=== PATIENT | male | born 1965 | race Caucasian/White ===

== ENCOUNTER 2016-12-23 09:39 | Emergency (ER) | payer OTHER ==
[2016-12-23] MEDS ORDERED: DIPH,PERTUS(ACELL)TETVAC-LF 0.5 ML VIAL IM ONE (09:43)
[2016-12-23] MEDS ORDERED: ceFAZolin 1,000 MG in DEXTROSE/WATER 1 50ML.BAG IVPB STA (09:44)
--- NOTE | 2016-12-23 10:04 | XR ---
Right hand HISTORY: Trauma third digit, pain No comparisons 3 views of the right hand There is soft tissue defect at the third digit compatible with laceration. There is a fracture does n ot show displacement third digit. Flexion deformity is present, correlate for possible tendon injury. No dislocation. IMPRESSION: Fracture and Posttraumatic changes of the third digit of the right hand
[2016-12-23 10:11] VITALS: TEMP 97.3
--- NOTE | 2016-12-23 10:23 | ED ---
General Adult HPI <Oskar Daniel - Last Filed: 12/23/16 10:57> - General Source: patient, EMS, RN notes reviewed Mode of arrival: EMS Limitations: no limitations <Pedro Pablo Stevenson - Last Filed: 12/23/16 11:30> - General Chief complaint: Extremity Injury, Upper Stated complaint: Finger Laceration Time Seen by Provider: 12/23/16 09:43 - History of Present Illness Initial comments: Patient 51-year-old male who presents to emergency room by EMS, the chief complaint of injury to the right middle finger just prior to arrival. Patient does admit that he was at work when he pushed against a piece of metal and it kicked back causing a laceration to the volar aspect of the right middle finger. He states unsure of his tetanus status. He denies any other complaints or injuries. Admits to pain locally. Patient denies any recent fever , chills, shortness of breath, chest pain, back pain, abdominal pain, nausea or vomiting, numbness or tingling, dysuria or hematuria, constipation or diarrhea, headaches or visual changes, or any other complaints. (Pedro Pablo Stevenson) - Related Data Previous Rx's Medication Instructions Recorded Cephalexin [Keflex] 500 mg PO Q12HR 10 Days 12/23/16 Hydrocodone/Acetaminophen [Ranger 1 each PO Q6HR PRN #10 tab 12/23/16 5-325] Allergies Allergy/AdvReac Type Severity Reaction Status Date / Time No Known Allergies Allergy Verified 12/23/16 10:02 Review of Systems ROS Other: All systems not noted in ROS Statement are negative. <Oskar Daniel - Last Filed: 12/23/16 10:57> ROS Other: All systems not noted in ROS Statement are negative. <Pedro Pablo Stevenson - Last Filed: 12/23/16 11:30> ROS Statement: Those systems with pertinent positive or pertinent negative responses have been documented in the HPI. Past Medical History Past Medical History: Hypertension History of Any Multi-Drug Resistant Organisms: None Reported Past Surgical History: Hernia Repair Past Psychological History: No Psychological Hx Reported Smoking Status: Current every day smoker Past Alcohol Use History: Occasional Past Drug Use History: None Reported <Pedro Pablo Stevenson - Last Filed: 12/23/16 11:30> General Exam <Oskar Daniel - Last Filed: 12/23/16 10:57> Limitations: no limitations <Pedro Pablo Stevenson - Last Filed: 12/23/16 11:30> - General Exam Comments Initial Comments: General: The patient is awake and alert, in no distress, and does not appear acutely ill. Neck: The neck is supple, there is no tenderness or JVD. Cardiovascular: There is a regular rate and rhythm. No murmur, rub or gallop is appreciated. Respiratory: Lungs are clear to auscultation, respirations are non-labored, breath sounds are equal. No wheezes, stridor, rales, or rhonchi. Musculoskeletal: Patient does have laceration to the volar aspect of the right middle finger. Sensations are intact. He is able to fully flex. He does have decreased extension at the DIP aspect. Cap refill less than 2 seconds. Pulses equal bilaterally 2+. Neurological: A&O x 3. CN II-XII intact, There are no obvious motor or sensory deficits. Coordination appears grossly intact. Speech is normal. Skin: Vision does have a V shaped laceration to the volar aspect of the right middle finger stretching just proximal of the PIP down to the DIP aspect. Mild venous oozing. Psychiatric: Normal mood and affect. (Pedro Pablo Stevenson) Course <Oskar Daniel - Last Filed: 12/23/16 10:57> <Pedro Pablo Stevenson - Last Filed: 12/23/16 11:30> Vital Signs 12/23/16 10:02 Temperature 97.3 F L Pulse Rate 64 Respiratory 18 Rate Blood Pressure 146/88 O2 Sat by Pulse 98 Oximetry - Reevaluation(s) Reevaluation #1: 12/23/16 10:57 I did personally do a [id number] evaluation of this patient and did discuss the findings with Dr. Horner. Patient has an evulsion injury to the volar aspect of the right middle finger the tendon does appear to be intact as far as the flexor tendon the patient is unable however to extend his distal phalanx. There is no open wounds over the dorsum of the finger. The avulsion injuries considered. Patient will be evaluated with washing out of the open wound and oversewing. Patient be placed in a splint and follow-up with Dr. Good for evaluation of his hand injury. (Oskar Daniel) Procedures <Oskar Daniel - Last Filed: 12/23/16 10:57> <Pedro Pablo Stevenson - Last Filed: 12/23/16 11:30> - Procedures Initial comment: Proximal May 5 centimeter V-shaped laceration to the volar aspect of the right middle finger. Area was heavily irrigated with saline under pressure. Anesthetized locally at the head of the metacarpal with 1% lidocaine without epi. Wound edges approximated with 5-0 nylon. A total of 15 sutures placed. ( Pedro Pablo Stevenson) Medical Decision Making <Oskar Daniel - Last Filed: 12/23/16 10:57> <Pedro Pablo Stevenson - Last Filed: 12/23/16 11:30> - Medical Decision Making Patient does appear to have tendon disruption of the distal aspect of the right middle finger. No lacerated tendons on exam as injury is to the volar side. Case discussed and seen by attending physician Dr. Daniel discussed it with orthopedic sales receptionist who states patient can be sewn up and follow-up in the office in the next 2 days. Patient tetanus updated. (Pedro Pablo Stevenson) Disposition <Oskar Daniel - Last Filed: 12/23/16 10:57> Time of Disposition: 11:29 <Pedro Pablo Stevenson - Last Filed: 12/23/16 11:30> Clinical Impression: Finger laceration, Tendon injury Disposition: HOME SELF-CARE Condition: Good Instructions: Laceration (ED) Additional Instructions: Please follow-up with orthopedics in the next 2 days as discussed. Please use antibiotic and pain medication as prescribed. Please return to emergency room if symptoms increase or worsen or for any other concerns. Prescriptions: Cephalexin [Keflex] 500 mg PO Q12HR 10 Days Hydrocodone/Acetaminophen [Ranger 5-325] 1 each PO Q6HR PRN #10 tab PRN Reason: Pain Referrals: Selwyn Conklin MD [Primary Care Provider] - 1-2 days Jone Good DO [Doctor of Osteopathic Medicine] - 1-2 days
[2016-12-23] MEDS ORDERED: TOPICAL SKIN ADHESIVE 1 EACH AMP TOPICAL ONE (11:48)
[2016-12-23 12:16] VITALS: BP 145/98; PULSE 74; RESP 16
== END 2016-12-23 12:18 | disposition home or self-care (01) ==
LOC: EC 09:39
DX: S61.212A Laceration without foreign body of right middle finger without damage to nail, initial encounter (principal); F17.200 Nicotine dependence, unspecified, uncomplicated; Z23 Encounter for immunization; W45.8XXA Other foreign body or object entering through skin, initial encounter; Y92.69 Other specified industrial and construction area as the place of occurrence of the external cause; Y93.89 Activity, other specified; Y99.0 Civilian activity done for income or pay
CPT/HCPCS: 73130; 90715; 99283; 96365; 12002; 90471; J0690

== ENCOUNTER 2018-06-24 07:07 | Day surgery (SDC) | payer OTHER ==
[2018-06-20 09:47] VITALS: BMI 31.6
[~2018-06-24 07:07] MED LIST: LACTATED RINGERS 1,000 ML IV SCH; LIDOCAINE 1% 20 ML VIAL (10MG/ML) FOR IV START INTRADERMA PRN
[2018-06-24 07:23] VITALS: TEMP 98
[2018-06-24] MEDS ORDERED: PROPOFOL 10 MG/ML 20 ML VIAL IV ONE (07:50)
--- NOTE | 2018-06-24 07:58 | P.GSHP ---
History of Present Illness H&P Date: 06/24/18 Chief Complaint: Screening colonoscopy This is a 52-year-old male who presents today for screening colonoscopy. He denies a any significant GI complaints. Past Medical History Past Medical History: Hyperlipidemia, Hypertension History of Any Multi-Drug Resistant Organisms: None Reported Past Surgical History: Hernia Repair, Orthopedic Surgery Additional Past Surgical History / Comment(s): Achilles tendon repair Past Anesthesia/Blood Transfusion Reactions: No Reported Reaction Smoking Status: Current every day smoker - Past Family History Mother Family Medical History: No Reported History Medications and Allergies Home Medications Medication Instructions Recorded Confirmed Type Fenofibrate 50 mg PO DAILY 06/20/18 06/24/18 History Lisinopril-Hctz 10-12.5 mg 1 tab PO DAILY 06/20/18 06/24/18 History [Zestoretic 10-12.5] Allergies Allergy/AdvReac Type Severity Reaction Status Date / Time No Known Allergies Allergy Verified 06/20/18 09:42 Surgical - Exam Vital Signs Temp Pulse Resp BP Pulse Ox 98.0 F 67 14 120/74 97 06/24/18 07:21 06/24/18 07:21 06/24/18 07:21 06/24/18 07:21 06/24/18 07:21 - General well developed, no distress - Eyes PERRL - ENT normal pinna - Neck no masses - Respiratory normal expansion - Cardiovascular Rhythm: regular - Abdomen Abdomen: soft, non tender Assessment and Plan Assessment: We'll perform initial screening colonoscopy.
--- NOTE | 2018-06-24 08:13 | P.OP ---
Date of Procedure: 06/24/18 Preoperative Diagnosis: Screening colonoscopy Postoperative Diagnosis: Rectal polyp Diverticulosis Procedure(s) Performed: Colonoscopy Anesthesia: MAC Surgeon: Al Warren Pathology: other (Rectal polyp) Condition: stable Disposition: PACU Description of Procedure: The patient's placed on the endoscopy table in the lateral position. He received IV sedation. Digital rectal exam was performed which revealed no abnormalities. Flexible colonoscope was then placed patient anus and passed throughout the entire colon. The ileocecal valve was visualized. The cecum, ascending and transverse colon appeared normal. The scope was then brought back into the descending colon and there was a few scattered diverticula. Scope was then brought back the sigmoid colon and a few scattered diverticuli were seen. The scope was then brought back the rectum and a polyp was seen and this was removed with the cold forcep. Scope was withdrawn for patient.
[2018-06-24 08:23] VITALS: RESP 16
[2018-06-24 08:41] VITALS: BP 132/78; PULSE 58
== END 2018-06-24 09:05 | disposition home or self-care (01) ==
LOC: ORWHC2ENDO 07:07
PROVIDERS: ATTEND Surgery
DX: Z12.11 Encounter for screening for malignant neoplasm of colon (principal); K62.1 Rectal polyp; K57.30 Diverticulosis of large intestine without perforation or abscess without bleeding; E78.5 Hyperlipidemia, unspecified; I10 Essential (primary) hypertension; Z79.899 Other long term (current) drug therapy; F17.210 Nicotine dependence, cigarettes, uncomplicated
CPT/HCPCS: 88305; 45380; J2704

== ENCOUNTER 2020-01-18 14:18 | Emergency (ER) | payer BC, OTHER ==
[2020-01-18 14:27] VITALS: RESP 18; TEMP 98
--- NOTE | 2020-01-18 14:50 | ED ---
General Adult HPI - General Source: patient Mode of arrival: ambulatory Limitations: no limitations <Aylin Reid - Last Filed: 01/18/20 16:13> <Anais Madrid - Last Filed: 01/21/20 11:48> - General Chief complaint: Recheck/Abnormal Lab/Rx Stated complaint: Hypertensive Time Seen by Provider: 01/18/20 14:29 - History of Present Illness Initial comments: Patient is a 54-year-old male, with history hypertension, presenting to the emergency Department with complaints of elevated blood pressure and feeling of anxiety happened approximately one hour ago. Patient states he did not take his blood pressure medication first thing this morning like he typically does, he had a large breakfast and then started having feelings of intense anxiety, heart racing, palpitations. He denies having any chest pain or pain anywhere. He states he then did take his medication. He checked his blood pressure at home and it was in the 160s and she got worried so he called EMS. By the time EMS arrived, patient states he felt normal again. EMS did do an EKG and checked his blood pressure which was in the 170s to 180s. Patient then decided to come into the ER to be seen. He is having no complaints at this time. He states it's been at least 9-10 years with his last stress test. He continues to report no chest pain, no shortness of breath. He denies any nausea, vomiting, abdominal pain. He states he simply got worried of this episode happened earlier. He reports no recent changes in medication. He has no further complaints at this time. Upon arrival to the ER, BP is 149/86, rest of vitals are stable. (Aylin Redi) - Related Data Home Medications Medication Instructions Recorded Confirmed Fenofibrate 50 mg PO DAILY 06/20/18 06/24/18 Lisinopril-Hctz 10-12.5 mg 1 tab PO DAILY 06/20/18 06/24/18 [Zestoretic 10-12.5] Allergies Allergy/AdvReac Type Severity Reaction Status Date / Time No Known Allergies Allergy Verified 06/20/18 09:42 Review of Systems ROS Other: All systems not noted in ROS Statement are negative. <Aylin Reid - Last Filed: 01/18/20 16:13> ROS Other: All systems not noted in ROS Statement are negative. <Anais Madrid - Last Filed: 01/21/20 11:48> ROS Statement: Those systems with pertinent positive or pertinent negative responses have been documented in the HPI. Past Medical History Past Medical History: Hyperlipidemia, Hypertension History of Any Multi-Drug Resistant Organisms: None Reported Past Surgical History: Hernia Repair, Orthopedic Surgery Additional Past Surgical History / Comment(s): Achilles tendon repair Past Anesthesia/Blood Transfusion Reactions: No Reported Reaction Past Psychological History: No Psychological Hx Reported Smoking Status: Current every day smoker Past Alcohol Use History: None Reported Past Drug Use History: None Reported - Past Family History Mother Family Medical History: No Reported History <Aylin Reid - Last Filed: 01/18/20 16:13> General Exam Limitations: no limitations <Aylin Reid - Last Filed: 01/18/20 16:13> - General Exam Comments Initial Comments: GENERAL: Well-appearing, well-nourished and in no acute distress. HEAD: Atraumatic, normocephalic. EYES: Pupils equal round and reactive to light, extraocular movements intact, sclera anicteric, conjunctiva are normal. ENT: TMs normal, nares patent, oropharynx clear without exudates. Moist mucous membranes. NECK: Normal range of motion, supple without lymphadenopathy or JVD. LUNGS: Breath sounds clear to auscultation bilaterally and equal. No wheezes rales or rhonchi. HEART: Regular rate and rhythm without murmurs, rubs or gallops. ABDOMEN: Soft, nontender, normoactive bowel sounds. No guarding, no rebound. No masses appreciated. : Deferred EXTREMITIES: Normal range of motion, no pitting or edema. No clubbing or cyanosis. NEUROLOGICAL: Cranial nerves II through XII grossly intact. Normal speech, normal gait. PSYCH: Normal mood, normal affect. SKIN: Warm, Dry, normal turgor, no rashes or lesions noted. (Aylin Reid) Course Vital Signs 01/18/20 01/18/20 01/18/20 14:23 15:27 16:29 Temperature 98.0 F Pulse Rate 65 75 70 Respiratory 18 16 18 Rate Blood Pressure 149/86 149/96 129/83 O2 Sat by Pulse 98 98 98 Oximetry EKG Findings - EKG Comments: EKG Findings:: EKG reads normal sinus rhythm with sinus arrhythmia, no acute changes, no signs of acute ischemia. Ventricular rate 70, OK interval 148, QTC 436. <Aylin Reid - Last Filed: 01/18/20 16:13> Medical Decision Making - Lab Data Result diagrams: 01/18/20 15:05 01/18/20 15:05 <Aylin Reid - Last Filed: 01/18/20 16:13> - Lab Data Result diagrams: 01/18/20 15:05 01/18/20 15:05 <Anais Madrid - Last Filed: 01/21/20 11:48> - Medical Decision Making Patient is a 54-year-old male presenting after an episode of heart racing, anxiety, "not feeling right." He was evaluated by EMS and decided to be seen in the ER. Upon arrival, his blood pressure and rest of vitals are normal. He is experiencing no symptoms at this time. His exam is unremarkable. EKG shows no acute changes. Lab work is unremarkable, troponin is normal. Chest x-ray shows no acute findings. Patient has remained asymptomatic in the ER. His blood pressure has been completely normal. I discussed with patient that his workup today is normal and he can follow up with his PCP. Patient is in agreement with this plan of care. Return parameters were discussed with the patient and he verbalized understanding. Case discussed with Dr. Madrid. (Aylin Reid) I was available for consultation in the emergency department. The history and physical exam were done by the midlevel provider. I was consulted for this patients care. I reviewed the case with the midlevel provider and based on their presentation of the patient, I agree with the assessment, medical decision making and plan of care as documented. Chart was dictated using [employer] dictation software. Attempts were made to correct any dictation errors however some typographical errors may persist. Patient was seen during a national state of emergency due to the Covid-19 pandemic. (Anais Madrid) - Lab Data Lab Results 01/18/20 01/18/20 01/18/20 Range/Units 15:05 15:05 15:05 WBC 8.7 (3.8-10.6) k/uL RBC 4.93 (4.30-5.90) m/uL Hgb 15.2 (13.0-17.5) gm/dL Hct 45.7 (39.0-53.0) % MCV 92.7 (80.0-100.0) fL MCH 30.8 (25.0-35.0) pg MCHC 33.2 (31.0-37.0) g/dL RDW 12.7 (11.5-15.5) % Plt Count 367 (150-450) k/uL Neutrophils % 54 % Lymphocytes % 33 % Monocytes % 5 % Eosinophils % 5 % Basophils % 1 % Neutrophils # 4.7 (1.3-7.7) k/uL Lymphocytes # 2.9 (1.0-4.8) k/uL Monocytes # 0.5 (0-1.0) k/uL Eosinophils # 0.4 (0-0.7) k/uL Basophils # 0.1 (0-0.2) k/uL Sodium 138 (137-145) mmol/L Potassium 4.6 (3.5-5.1) mmol/L Chloride 108 H (98-107) mmol/L Carbon Dioxide 23 (22-30) mmol/L Anion Gap 7 mmol/L BUN 19 (9-20) mg/dL Creatinine 1.11 (0.66-1.25) mg/dL Est GFR (CKD-EPI)AfAm 88 (>60 ml/min/1.73 sqM) Est GFR (CKD-EPI)NonAf 76 (>60 ml/min/1.73 sqM) Glucose 122 H (74-99) mg/dL Calcium 9.4 (8.4-10.2) mg/dL Total Bilirubin 0.6 (0.2-1.3) mg/dL AST 40 (17-59) U/L ALT 41 (4-49) U/L Alkaline Phosphatase 67 (38-126) U/L Troponin I <0.012 (0.000-0.034) ng/mL Total Protein 7.8 (6.3-8.2) g/dL Albumin 4.5 (3.5-5.0) g/dL Disposition Is patient prescribed a controlled substance at d/c from ED?: No <Aylin Reid - Last Filed: 01/18/20 16:13> <Anais Madrid - Last Filed: 01/21/20 11:48> Clinical Impression: Hypertension, Anxiety Disposition: HOME SELF-CARE Condition: Stable Instructions (If sedation given, give patient instructions): Hypertension (ED) Additional Instructions: Please return to the Emergency Department if symptoms worsen or any other concerns. Follow-up with PCP. Referrals: Selwyn Conklin MD [Primary Care Provider] - 1-2 days
[2020-01-18 15:23] LABS: Basophils # (A) 0.1 k/uL (0-0.2); Basophils % (A) 1 %; Eosinophils # (A) 0.4 k/uL (0-0.7); Eosinophils % (A) 5 %; HCT 45.7 % (39.0-53.0); HGB 15.2 gm/dL (13.0-17.5); Lymphocytes # (A) 2.9 k/uL (1.0-4.8); Lymphocytes % (A) 33 %; MCH 30.8 pg (25.0-35.0); MCHC 33.2 g/dL (31.0-37.0); MCV 92.7 fL (80.0-100.0); Mean Platelet Volume 7.3; Monocytes # (A) 0.5 k/uL (0-1.0); Monocytes % (A) 5 %; Neutrophils # (A) 4.7 k/uL (1.3-7.7); Neutrophils % (A) 54 %; Platelet Count 367 k/uL (150-450); RBC 4.93 m/uL (4.30-5.90); RDW 12.7 % (11.5-15.5); WBC 8.7 k/uL (3.8-10.6)
--- NOTE | 2020-01-18 15:23 | XR ---
EXAMINATION TYPE: XR chest 2V DATE OF EXAM: 01/18/2020 COMPARISON: NONE HISTORY: Palpitations TECHNIQUE: FINDINGS: Heart and mediastinum are normal. Lungs are clear. Diaphragm is normal. Bony thorax appears normal. There are chest leads. IMPRESSION: Normal chest. Normal heart.
[2020-01-18 15:28] LABS: Albumin 4.5 g/dL (3.5-5.0); Calcium 9.4 mg/dL (8.4-10.2); Potassium 4.6 mmol/L (3.5-5.1); Total Bilirubin 0.6 mg/dL (0.2-1.3); Total Protein 7.8 g/dL (6.3-8.2)
[2020-01-18 16:29] VITALS: BP 129/83; PULSE 70
== END 2020-01-18 16:30 | disposition home or self-care (01) ==
LOC: EC 14:18
DX: I10 Essential (primary) hypertension (principal); F41.9 Anxiety disorder, unspecified; E78.5 Hyperlipidemia, unspecified; F17.200 Nicotine dependence, unspecified, uncomplicated; Z79.899 Other long term (current) drug therapy
CPT/HCPCS: 36415; 71046; 80053; 84484; 85025; 93005; 99284

== ENCOUNTER 2022-02-16 11:36 | Emergency (ER) | payer BC, OTHER ==
[2022-02-16 11:56] VITALS: RESP 16; TEMP 98
[2022-02-16 12:13] LABS: Basophils # (A) 0.1 k/uL (0-0.2); Basophils % (A) 1 %; Eosinophils # (A) 0.2 k/uL (0-0.7); Eosinophils % (A) 3 %; HGB 13.3 gm/dL (13.0-17.5); Lymphocytes # (A) 2.1 k/uL (1.0-4.8); Lymphocytes % (A) 29 %; MCHC 33.2 g/dL (31.0-37.0); MCV 93.2 fL (80.0-100.0); Mean Platelet Volume 7.4; Monocytes # (A) 0.3 k/uL (0-1.0); Monocytes % (A) 4 %; Neutrophils # (A) 4.6 k/uL (1.3-7.7); Neutrophils % (A) 62 %; Platelet Count 312 k/uL (150-450); RBC 4.29 m/uL (4.30-5.90); RDW 12.7 % (11.5-15.5); WBC 7.3 k/uL (3.8-10.6)
[2022-02-16] MEDS ORDERED: ASPIRIN 81 MG PO STA (12:16)
[2022-02-16 12:26] LABS: ALT 22 U/L (4-49); AST 25 U/L (17-59); African American GFR (CKD) >90 (>60 ml/min/1.73 sqM); Alkaline Phosphatase 65 U/L (38-126); Anion Gap 7 mmol/L; Blood Urea Nitrogen 15 mg/dL (9-20); Calcium 8.7 mg/dL (8.4-10.2); Carbon Dioxide 23 mmol/L (22-30); Chloride 109 mmol/L (98-107); Glucose 113 mg/dL (74-99); Magnesium 1.6 mg/dL (1.6-2.3); Non-African American GFR(CKD) 89 (>60 ml/min/1.73 sqM); Potassium 3.5 mmol/L (3.5-5.1); Sodium 139 mmol/L (137-145); Total Bilirubin 0.7 mg/dL (0.2-1.3); Total Protein 6.7 g/dL (6.3-8.2)
[2022-02-16 12:37] LABS: Partial Thromboplastin Time 25.4 sec (22.0-30.0); Prothrombin Time 10.9 sec (9.0-12.0)
--- NOTE | 2022-02-16 13:47 | XR ---
EXAMINATION TYPE: XR chest 2V DATE OF EXAM: 02/16/2022 COMPARISON: X-ray dated 01/18/2020 HISTORY: Chest pain TECHNIQUE: Frontal and lateral views of the chest are obtained. FINDINGS: Grossly unremarkable lungs. No sizable pleural effusion or definite pneumothorax. No cardiomegaly. No gross aggressive bone lesion. IMPRESSION: Grossly unremarkable chest x-ray.
[2022-02-16 13:56] VITALS: PULSE 63
[2022-02-16 13:58] VITALS: BP 149/95
--- NOTE | 2022-02-16 14:09 | ED ---
General Adult HPI - General Chief complaint: Neuro Symptoms/Deficit Stated complaint: Hypertensive Time Seen by Provider: 02/16/22 11:53 Source: patient, EMS, RN notes reviewed Mode of arrival: EMS Limitations: no limitations - History of Present Illness Initial comments: This a 56-year-old male presents emergency Department with chief complaint of chest pressure, reflux, hypertension. Patient states he was at work states he drank some Coke. Patient states that he started not feeling well states he sometimes has is that she really gets pressure, reflux. He states that he still wasn't feeling better after burping continuously went home. He went home check his blood pressure was noted be high. He checked it several times after with increasing symptoms, facial numbness and tingling feeling very anxious. Patient states he still didn't feel well and which he contacted his significant other, started to drive towards the hospital while contacting EMS. Patient was found be hypertensive by EMS but his numbness and tingling have resolved he still has mild indigestion, chest pressure. - Related Data Home Medications Medication Instructions Recorded Confirmed Fenofibrate Nanocrystallized 145 mg PO DAILY 02/16/22 02/16/22 [Fenofibrate] Lisinopril-Hctz 20-25 mg 1 tab PO DAILY 02/16/22 02/16/22 [Zestoretic 20-25] Allergies Allergy/AdvReac Type Severity Reaction Status Date / Time No Known Allergies Allergy Verified 02/16/22 12:23 Review of Systems ROS Statement: Those systems with pertinent positive or pertinent negative responses have been documented in the HPI. ROS Other: All systems not noted in ROS Statement are negative. Past Medical History Past Medical History: Hyperlipidemia, Hypertension History of Any Multi-Drug Resistant Organisms: None Reported Past Surgical History: Hernia Repair, Orthopedic Surgery Additional Past Surgical History / Comment(s): Achilles tendon repair Past Anesthesia/Blood Transfusion Reactions: No Reported Reaction Past Psychological History: No Psychological Hx Reported Smoking Status: Current every day smoker Past Alcohol Use History: None Reported Past Drug Use History: Marijuana - Past Family History Mother Family Medical History: No Reported History General Exam Limitations: no limitations General appearance: alert, in no apparent distress Head exam: Present: atraumatic, normocephalic, normal inspection Eye exam: Present: normal appearance, PERRL, EOMI. Absent: scleral icterus, conjunctival injection, periorbital swelling ENT exam: Present: normal exam, normal oropharynx, mucous membranes moist Neck exam: Present: normal inspection, full ROM. Absent: tenderness, men ingismus, lymphadenopathy Respiratory exam: Present: normal lung sounds bilaterally. Absent: respiratory distress, wheezes, rales, rhonchi, stridor Cardiovascular Exam: Present: regular rate, normal rhythm, normal heart sounds. Absent: systolic murmur, diastolic murmur, rubs, gallop, clicks GI/Abdominal exam: Present: soft, normal bowel sounds. Absent: distended, tenderness, guarding, rebound, rigid Back exam: Absent: CVA tenderness (R), CVA tenderness (L) Neurological exam: Present: alert, oriented X3 Skin exam: Present: warm, dry, intact, normal color. Absent: rash Course Vital Signs 02/16/22 02/16/22 02/16/22 11:41 13:55 13:57 Temperature 98.0 F Pulse Rate 53 L 63 Respiratory 16 16 16 Rate Blood Pressure 185/97 148/102 149/95 O2 Sat by Pulse 98 97 Oximetry Medical Decision Making - Medical Decision Making 56-year-old presented for chest epigastric pressure. Patient did have mild hypertension, does have panic attack, anxiety issues. Patient symptoms are resolved workup is negative including EKG, troponin and chest x-ray. 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 - Lab Data Result diagrams: 02/16/22 12:04 02/16/22 12:04 Lab Results 02/16/22 02/16/22 02/16/22 Range/Units 12:04 12:04 12:04 WBC 7.3 (3.8-10.6) k/uL RBC 4.29 L (4.30-5.90) m/uL Hgb 13.3 (13.0-17.5) gm/dL Hct 40.0 (39.0-53.0) % MCV 93.2 (80.0-100.0) fL MCH 31.0 (25.0-35.0) pg MCHC 33.2 (31.0-37.0) g/dL RDW 12.7 (11.5-15.5) % Plt Count 312 (150-450) k/uL MPV 7.4 Neutrophils % 62 % Lymphocytes % 29 % Monocytes % 4 % Eosinophils % 3 % Basophils % 1 % Neutrophils # 4.6 (1.3-7.7) k/uL Lymphocytes # 2.1 (1.0-4.8) k/uL Monocytes # 0.3 (0-1.0) k/uL Eosinophils # 0.2 (0-0.7) k/uL Basophils # 0.1 (0-0.2) k/uL PT 10.9 (9.0-12.0) sec INR 1.0 (<1.2) APTT 25.4 (22.0-30.0) sec D-Dimer <0.17 (<0.60) mg/L FEU Sodium 139 (137-145) mmol/L Potassium 3.5 (3.5-5.1) mmol/L Chloride 109 H (98-107) mmol/L Carbon Dioxide 23 (22-30) mmol/L Anion Gap 7 mmol/L BUN 15 (9-20) mg/dL Creatinine 0.97 (0.66-1.25) mg/dL Est GFR (CKD-EPI)AfAm >90 (>60 ml/min/1.73 sqM) Est GFR (CKD-EPI)NonAf 89 (>60 ml/min/1.73 sqM) Glucose 113 H (74-99) mg/dL Calcium 8.7 (8.4-10.2) mg/dL Magnesium 1.6 (1.6-2.3) mg/dL Total Bilirubin 0.7 (0.2-1.3) mg/dL AST 25 (17-59) U/L ALT 22 (4-49) U/L Alkaline Phosphatase 65 (38-126) U/L Troponin I (0.000-0.034) ng/mL Total Protein 6.7 (6.3-8.2) g/dL Albumin 4.0 (3.5-5.0) g/dL 02/16/22 Range/Units 12:04 WBC (3.8-10.6) k/uL RBC (4.30-5.90) m/uL Hgb (13.0-17.5) gm/dL Hct (39.0-53.0) % MCV (80.0-100.0) fL MCH (25.0-35.0) pg MCHC (31.0-37.0) g/dL RDW (11.5-15.5) % Plt Count (150-450) k/uL MPV Neutrophils % % Lymphocytes % % Monocytes % % Eosinophils % % Basophils % % Neutrophils # (1.3-7.7) k/uL Lymphocytes # (1.0-4.8) k/uL Monocytes # (0-1.0) k/uL Eosinophils # (0-0.7) k/uL Basophils # (0-0.2) k/uL PT (9.0-12.0) sec INR (<1.2) APTT (22.0-30.0) sec D-Dimer (<0.60) mg/L FEU Sodium (137-145) mmol/L Potassium (3.5-5.1) mmol/L Chloride (98-107) mmol/L Carbon Dioxide (22-30) mmol/L Anion Gap mmol/L BUN (9-20) mg/dL Creatinine (0.66-1.25) mg/dL Est GFR (CKD-EPI)AfAm (>60 ml/min/1.73 sqM) Est GFR (CKD-EPI)NonAf (>60 ml/min/1.73 sqM) Glucose (74-99) mg/dL Calcium (8.4-10.2) mg/dL Magnesium (1.6-2.3) mg/dL Total Bilirubin (0.2-1.3) mg/dL AST (17-59) U/L ALT (4-49) U/L Alkaline Phosphatase (38-126) U/L Troponin I <0.012 (0.000-0.034) ng/mL Total Protein (6.3-8.2) g/dL Albumin (3.5-5.0) g/dL Disposition Clinical Impression: Atypical chest pain, Hypertension Disposition: HOME SELF-CARE Condition: Stable Instructions (If sedation given, give patient instructions): Chest Pain (ED) Additional Instructions: Please return to the Emergency Department if symptoms worsen or any other concerns. Is patient prescribed a controlled substance at d/c from ED?: No Referrals: [facility],Clinic [Primary Care Provider] - 1-2 days Time of Disposition: 14:27
== END 2022-02-16 14:51 | disposition home or self-care (01) ==
LOC: EC 11:36
DX: R07.89 Other chest pain (principal); I10 Essential (primary) hypertension; F17.200 Nicotine dependence, unspecified, uncomplicated; Z79.899 Other long term (current) drug therapy
CPT/HCPCS: 36415; 71046; 80053; 83735; 84484; 85025; 85379; 85610; 85730; 99285

== ENCOUNTER → 2022-07-18 | Outpatient (CLI) | payer OTHER ==
--- NOTE | 2022-07-18 12:01 | XR ---
EXAMINATION TYPE: XR wrist complete RT DATE OF EXAM: 07/18/2022 CLINICAL HISTORY: Injury with pain TECHNIQUE: Frontal, lateral and oblique images of the right wrist are obtained. 4 view scaphoid vie w is performed. COMPARISON: Right hand x-ray 2016 FINDINGS: There is no acute fracture/dislocation evident in the right wrist. The joint spaces in th e right wrist appear within normal limits. The overlying soft tissue appears unremarkable. IMPRESSION: There is no acute fracture or dislocation in the right wrist.
== END | disposition home or self-care (01) ==
LOC: RADXRMAIN 11:34
PROVIDERS: ATTEND Emergency Medicine
DX: S66.911A Strain of unspecified muscle, fascia and tendon at wrist and hand level, right hand, initial encounter (principal)

== ENCOUNTER 2023-01-18 01:24 | Emergency (ER) | payer OTHER, BC ==
[2023-01-18 01:29] VITALS: TEMP 97.9
--- NOTE | 2023-01-18 02:44 | XR ---
EXAM: XR Chest, 2 Views CLINICAL HISTORY: XR Reason: congestion TECHNIQUE: Frontal and lateral views of the chest. COMPARISON: February 16, 2022 FINDINGS: Lungs: Unremarkable. No consolidation. Pleural space: Unremarkable. No pneumothorax. Heart: Unremarkable. No cardiomegaly. Mediastinum: Unremarkable. Bones/joints: Unremarkable. IMPRESSION: No acute cardiopulmonary process is identified.
[2023-01-18] MEDS ORDERED: IPRATROPIUM-ALBUTEROL 3 ML NEB INHALATION STA (03:49)
--- NOTE | 2023-01-18 04:37 | ED ---
General Adult HPI - General Chief complaint: Shortness of Breath Stated complaint: SOB Time Seen by Provider: 01/18/23 03:00 Source: patient, family Mode of arrival: wheelchair Limitations: no limitations - History of Present Illness Initial comments: This is a 57-year-old male with a past medical history including asthma presents emergency department for increasing shortness of breath and congestion. The patient was noted that he has had asthma in the past and did have a similar episode to this 2 weeks ago that took a few weeks to improve. The patient stated that he feels that he has some minor asthma that does get worse with changes in weather. The patient stated he had an old albuterol inhaler that was over 9 years old and was not working. The patient denied recent sick contacts and denied any fevers or chills. The patient did state that he had a minor cough as well. - Related Data Home Medications Medication Instructions Recorded Confirmed Fenofibrate Nanocrystallized 145 mg PO DAILY 02/16/22 02/16/22 [Fenofibrate] Lisinopril-Hctz 20-25 mg 1 tab PO DAILY 02/16/22 02/16/22 [Zestoretic 20-25] Previous Rx's Medication Instructions Recorded Albuterol Inhaler [Ventolin Hfa 1 - 2 puff INHALATION Q6H PRN #1 01/18/23 Inhaler] kit methylPREDNISolone [Medrol Dose 0 mg PO DIRECTED #1 packet 01/18/23 Pack] Allergies Allergy/AdvReac Type Severity Reaction Status Date / Time No Known Allergies Allergy Verified 01/18/23 01:28 Review of Systems ROS Statement: Those systems with pertinent positive or pertinent negative responses have been documented in the HPI. ROS Other: All systems not noted in ROS Statement are negative. Past Medical History Past Medical History: Hyperlipidemia, Hypertension History of Any Multi-Drug Resistant Organisms: None Reported Past Surgical History: Hernia Repair, Orthopedic Surgery Additional Past Surgical History / Comment(s): Achilles tendon repair Past Anesthesia/Blood Transfusion Reactions: No Reported Reaction Past Psychological History: No Psychological Hx Reported Smoking Status: Current every day smoker Past Alcohol Use History: None Reported Past Drug Use History: Marijuana - Past Family History Mother Family Medical History: No Reported History General Exam Limitations: no limitations General appearance: alert, in no apparent distress Head exam: Present: atraumatic, normocephalic, normal inspection Eye exam: Present: normal appearance, PERRL Pupils: Present: normal accommodation ENT exam: Present: normal exam, normal oropharynx, mucous membranes moist Neck exam: Present: normal inspection, full ROM Respiratory exam: Present: normal lung sounds bilaterally Cardiovascular Exam: Present: regular rate, normal rhythm, normal heart sounds GI/Abdominal exam: Present: soft, normal bowel sounds Extremities exam: Present: normal inspection, full ROM Back exam: Present: normal inspection, full ROM Neurological exam: Present: alert, oriented X3, CN II-XII intact Psychiatric exam: Present: normal affect, normal mood Skin exam: Present: warm, dry Course Vital Signs 01/18/23 01/18/23 01/18/23 01:26 03:12 04:40 Temperature 97.9 F Pulse Rate 86 70 60 Respiratory 18 22 Rate Blood Pressure 183/112 153/102 O2 Sat by Pulse 98 97 Oximetry 01/18/23 01/18/23 04:48 04:59 Temperature Pulse Rate 65 74 Respiratory 16 Rate Blood Pressure 142/88 O2 Sat by Pulse 99 Oximetry EKG Findings - EKG Comments: EKG Findings:: An EKG was obtained and was interpreted by myself showing a rate of 86, MN interval 150, QRS duration of 96 and QTC of 454. This EKG showed a normal sinus rhythm with no ST segment elevation or depression noted. Medical Decision Making - Medical Decision Making Was pt. sent in by a medical professional or institution (RAMAN Loredo, HIGHWALL DRILL OPERATOR, urgent care, hospital, or fpc...) When possible be specific @ -No Did you speak to anyone other than the patient for history (EMS, parent, family, police, friend...)? What history was obtained from this source @ -No Did you review nursing and triage notes (agree or disagree)? Why? @ -I reviewed and agree with nursing and triage notes Were old charts reviewed (outside hosp., previous admission, EMS record, old EKG, old radiological studies, urgent care reports/EKG's, fpc records)? Report findings @ -No old charts were reviewed Differential Diagnosis (chest pain, altered mental status, abdominal pain women, abdominal pain men, vaginal bleeding, weakness, fever, dyspnea, syncope, headache, dizziness, GI bleed, back pain, seizure, CVA, palpatations, mental health)? @ -Asthma exacerbation, pneumonia, pneumothorax EKG interpreted by me (3pts min.). @ -As above X-rays interpreted by me (1pt min.). @ -Chest x-ray was obtained and was interpreted by myself showing no acute process. CT interpreted by me (1pt min.). @ -None done U/S interpreted by me (1pt. min.). @ -None done What testing was considered but not performed or refused? (CT, X-rays, U/S, labs)? Why? @ -None What meds were considered but not given or refused? Why? @ -None Did you discuss the management of the patient with other professionals (professionals i.e. Dr., PA, HIGHWALL DRILL OPERATOR, lab, RT, psych nurse, social services assistant, director advertising, teacher, global chief creative officer, director case management)? Give summary @ -No Was smoking cessation discussed for >3mins.? @ -Yes Was critical care preformed (if so, how long)? @ -No Were there social determinants of health that impacted care today? How? (Homelessness, low income, unemployed, alcoholism, drug addiction, transportation, low edu. Level, literacy, decrease access to med. care, halfway, rehab)? @ -No Was there de-escalation of care discussed even if they declined (Discuss DNR or withdrawal of care, Hospice)? DNR status @ -No What co-morbidities impacted this encounter? (DM, HTN, Smoking, COPD, CAD, Cancer, CVA, ARF, Chemo, Hep., AIDS, mental health diagnosis, sleep apnea, morbid obesity)? @ -None Was patient admitted / discharged? Hospital course, mention meds given and route, prescriptions, significant lab abnormalities, going to OR and other pertinent info. @ -The patient was seen and evaluated emergency department. Physical exam, the patient was resting in bed without any acute distress. Vital signs admission were stable. Chest x-ray was obtained in triage and was negative. The patient denied of any wheezing on auscultation and likely had an upper respiratory infection. The patient was given a single breathing treatment for comfort and on reevaluation stated that his symptoms had improved. The patient was given a prescription for a Medrol Dosepak as well as a albuterol inhaler refill to be taken at home. The patient was advised to follow-up with his primary care physician for further workup and evaluation is report back to the emergency department if his symptoms became acutely worse. The patient was agreeable to this and all discretions were answered. The patient was discharged home in stable condition. Undiagnosed new problem with uncertain prognosis? @ -No Drug Therapy requiring intensive monitoring for toxicity (Heparin, Nitro, Insulin, Cardizem)? @ -No Were any procedures done? @ -No Diagnosis/symptom? @ -Upper respiratory infection Acute, or Chronic, or Acute on Chronic? @ -Acute Uncomplicated (without systemic symptoms) or Complicated (systemic symptoms)? @ -Uncomplicated Side effects of treatment? @ -No Exacerbation, Progression, or Severe Exacerbation? @ -No Poses a threat to life or bodily function? How? (Chest pain, USA, NC, pneumonia, PE, COPD, DKA, ARF, appy, cholecystitis, CVA, Diverticulitis, Homicidal, Suicidal, threat to staff... and all critical care pts) @ -No Disposition Clinical Impression: URI (upper respiratory infection) Disposition: HOME SELF-CARE Condition: Stable Instructions (If sedation given, give patient instructions): Upper Respiratory Infection (DC) Prescriptions: methylPREDNISolone [Medrol Dose Pack] 0 mg PO DIRECTED #1 packet Albuterol Inhaler [Ventolin Hfa Inhaler] 1 - 2 puff INHALATION Q6H PRN #1 kit PRN Reason: Shortness Of Breath Or Wheezing Is patient prescribed a controlled substance at d/c from ED?: No Referrals: [facility],Clinic [Primary Care Provider] - 1-2 days Time of Disposition: 04:30
[2023-01-18 05:01] VITALS: BP 142/88; PULSE 74; RESP 16
== END 2023-01-18 05:01 | disposition home or self-care (01) ==
LOC: EC 01:24
DX: J06.9 Acute upper respiratory infection, unspecified (principal); I10 Essential (primary) hypertension; F17.200 Nicotine dependence, unspecified, uncomplicated; F12.90 Cannabis use, unspecified, uncomplicated; Z79.899 Other long term (current) drug therapy
CPT/HCPCS: 71046; 93005; 94640; 99285

== ENCOUNTER → 2023-02-08 | Outpatient (CLI) | payer OTHER ==
--- NOTE | 2023-02-09 13:24 | CTL ---
EXAMINATION TYPE: CT Low Dose Lung DATE OF EXAM: 02/08/2023 5:10 PM CLINICAL INDICATION:Male, 57 years old with history of Z87.891; h/o tobacco use x30 years current smo ker , history of tobacco use. COMPARISON: Radiographs 02/06/2023 TECHNIQUE: Multiple axial non-contrast scans were obtained from approximately the lung apices through the upper abdomen. Coronal and sagittal reformatted images were obtained. Low dose technique was uti lized. CT DLP: 142.6 mGycm, Automated exposure control for dose reduction was used. CT Contrast: Contrast used: None Oral contrast used: None FINDINGS: ======== Lack of intravenous contrast and low dose technique limits the evaluation of the vascular and soft ti ssue structures. LUNGS: No evidence of pulmonary fibrosis. No evidence of focal consolidation, pneumothorax or pleural effusion. Mild centrilobular emphysema changes. Streaky atelectasis seen within the lung bases. Nodules: RUL: None. RML: None. RLL: None. MAIKEL: None. LLL: None. AIRWAY: Patent and unremarkable. HEART: Size within normal limits. MEDIASTINUM: No gross evidence of adenopathy. VASCULATURE: No aortic aneurysm. MUSCULOSKELETAL: No acute osseous abnormalities SOFT TISSUES/LYMPH NODES: Mild gynecomastia changes bilaterally. LOWER NECK: No significant findings. UPPER ABDOMEN: No significant findings. IMPRESSION: 1. No pulmonary nodules. 2. Mild emphysema. CT LUNG RAD AND CT CHEST RECOMMENDATION: Lung-Rad 1 Negative: Continue annual screening with LDCT in 12 months. S Modifier (other clinically significant findings): None Recommend smoking cessation (if current smoker), or continuation of smoking cessation (if prior smoke r). Annual screening for lung cancer with low-dose computed tomography is recommended in adults ages 55 to 77 years who have a 30 pack-year smoking history and currently smoke or have quit within the pa st 15 years. Screening should be discontinued once a person has not smoked for 15 years or develops a health problem that substantially limits life expectancy or the ability or willingness to have curat shaniqua lung surgery. Lung rads 2021 [email or web address]
== END | disposition home or self-care (01) ==
LOC: RADCTMAIN 16:35
DX: Z12.2 Encounter for screening for malignant neoplasm of respiratory organs (principal); J43.2 Centrilobular emphysema; F17.210 Nicotine dependence, cigarettes, uncomplicated
CPT/HCPCS: 71271